=== PATIENT | male | born 1945 | race Caucasian/White ===

== ENCOUNTER 2018-08-10 18:31 | Emergency (ER) | payer BC, SELFPAY ==
[2018-08-10 18:34] VITALS: BP 137/79; PULSE 84; RESP 18; TEMP 36.7; O2SAT 93; BMI 27.9
--- NOTE | 2018-08-10 18:54 | DI.RAD.S_ITS ---
PROCEDURE: XR CHEST 1V INDICATIONS: short of breath chest pain TECHNIQUE: One view of the chest was acquired. COMPARISON: [facility], , CHEST 1 VIEW, 04/28/2016, 21:14. FINDINGS: Surgical changes and devices: None. Lungs and pleura: Trace blunting of the left costophrenic angle. Minimal appearance of streaky retrocardiac opacity. Mediastinum: Mediastinal contours appear normal. Heart size is normal. Bones and chest wall: No suspicious bony lesions. Overlying soft tissues appear unremarkable. IMPRESSION: Trace left effusion with streaky retrocardiac opacity suggestive of airspace disease such as developing pneumonia. Dictated by: Carli Crooks M.D. on 08/10/2018 at 19:23 Approved by: Carli Crooks M.D. on 08/10/2018 at 19:23
[2018-08-10 19:00] VITALS: BP 130/70; PULSE 76; RESP 17; O2SAT 93
--- NOTE | 2018-08-10 19:01 | ED.CHESTPAIN ---
HPI - Chest Pain General Chief Complaint: Chest Pain Stated Complaint: WHEN TRYING TO TAKE BREATH PAIN IN CHEST Time Seen by Provider: 08/10/18 18:47 Source: patient Mode of arrival: ambulatory Limitations: no limitations History of Present Illness HPI narrative: Patient is a 72-year-old male who presents with left-sided chest pain. He says it hurts every time he breathes. He feels like he has to take a shallow breath. It is nonradiating been ongoing since yesterday. He has had a productive cough sometimes it is blood-streaked but mostly yellow. He has not had rigors chills or fever. He denies any heart palpitations dizziness or lightheadedness. he has not taken anything for pain. patient does fly to [place] once a week. he has been doing this for number of years no history of blood clots. MD complaint: chest pain Onset (ago): day(s) (2) Relieving factors: nothing Exacerbating factors: inspiration and movement Related Data Home Medications Medication Instructions Recorded Confirmed CETIRIZINE HCL (Zyrtec) 10 mg PO Q DAY #0 04/14/11 Glucosamine Sulfate (#GLUCOSAMINE) 500 mg PO Q DAY #0 04/14/11 MULTIVITAMIN (#MULTIPLE VITAMINS) 1 cap PO Q DAY #0 04/14/11 tamsulosin [Flomax] 0.4 mg PO QDAY #0 10/16/17 Previous Rx's Medication Instructions Recorded amoxicillin-pot clavulanate 875 mg PO BID #20 tab 10/29/16 [Augmentin] levofloxacin [Levaquin] 750 mg PO DAILY #4 tab 08/10/18 Allergies Allergy/AdvReac Type Severity Reaction Status Date / Time Sulfa (Sulfonamide Allergy Severe airway Verified 08/10/18 18:33 Antibiotics) swelling [SULFA (SULFONAMIDE ANTIBIOTICS)] Review of Systems Review of Systems All systems reviewed & are unremarkable except as noted in HPI and below Constitutional Denies chills, Reports fatigue ( More tired over the last couple days), Denies fever(s), Denies lethargy and Denies weakness Eyes Denies change in vision, Denies eye discharge, Denies irritation and Denies loss of vision Cardiovascular Reports as per HPI Respiratory Reports as per HPI and Reports hemoptysis ( blood streaked sputum miniscule amounts) Gastrointestinal Gastrointestinal: Denies abdominal pain, Denies change in bowel habits, Denies diarrhea, Denies nausea and Denies vomiting Musculoskeletal Denies back pain, Denies muscle weakness, Denies numbness and Denies tingling Integumentary/Breasts Denies pruritus, Denies erythema, Denies rash and Denies wounds Neurologic Denies loss of vision, Denies numbness, Denies tingling and Denies weakness Endocrine Reports fatigue ( More tired over the last couple days) PFSH Medical History Healthy adult male (Acute) Social History Smoking Status: Never smoker Comment: PCP: [facility] Initial Vital Signs Initial Vital Signs: Vital Signs Temperature 98.0 F 08/10/18 18:34 Pulse Rate 84 08/10/18 18:34 Respiratory Rate 18 08/10/18 18:34 Blood Pressure 137/79 08/10/18 18:34 Pulse Oximetry 93 08/10/18 18:34 GENERAL: [Well-appearing, well-nourished] and in [no acute] distress. HEENT: Head atraumatic,EOMI, pupils reactive, face symmetric, no JVD neck is supple CARDIOVASCULAR: Regular rate and rhythm without murmurs, rubs or gallops. pain left-sided chest between ribs 3 and 4 slightly reproducible with palpation RESPIRATORY: Breath sounds equal bilaterally, no wheezes rales or rhonchi. deep breathing reproduces pain ABDOMEN: Soft, nontender. Normoactive bowel sounds all 4 quadrants. No guarding or rebound. EXTREMITIES: Normal range of motion, no clubbing or edema. Neurovascularly intact NEUROLOGICAL: Alert and oriented x4.Normal gait and speech. Cranial nerves II through XII grossly intact. SKIN: Warm, dry, no laceration, no petechiae, no rashes or lesions. Scores qSOFA Altered Mental Status (GCS <15): No Respiratory rate greater than/equal to 22: Yes Systolic blood pressure less than or equal to 100: No qSOFA Total: 1 0-1 Not High Risk 1-3 High risk Course Orders Ordered: ED Orders 08/10/18 18:54 XR chest 1V Stat 08/10/18 19:08 B Type Natriuretic Peptide Stat Complete Blood Count AUTO DIFF Stat Comprehensive Metabolic Panel Stat D Dimer Stat Lipase Stat Troponin & CK Cardiac Panel Stat 08/10/18 19:38 CT angio chest PE protocol Stat Discontinued Medications Albuterol/Ipratropium (Duoneb) 3 ml INH NOW ONE Stop: 08/10/18 18:57 Last Admin: 08/10/18 19:27 Dose: 3 ml Ketorolac Tromethamine (Toradol) 30 mg IV NOW ONE Stop: 08/10/18 18:57 Last Admin: 08/10/18 19:34 Dose: 30 mg Levofloxacin (Levaquin) 750 mg PO NOW ONE Stop: 08/10/18 20:56 Last Admin: 08/10/18 21:17 Dose: 750 mg Vital Signs - 8 hr 08/10/18 18:34 08/10/18 19:00 08/10/18 19:28 Temperature 98.0 F Pulse Rate 84 76 78 Respiratory Rate 18 17 17 Blood Pressure 137/79 Blood Pressure [Right Arm] 130/70 Pulse Oximetry 93 93 97 08/10/18 20:24 08/10/18 21:00 Temperature Pulse Rate 84 76 Respiratory Rate 18 25 H Blood Pressure Blood Pressure [Right Arm] 127/69 129/72 Pulse Oximetry 95 94 MDM - Chest Pain Lab Data Attestation: I reviewed the patient's lab results. Result diagrams: 08/10/18 19:08 08/10/18 19:08 Lab Results 08/10/18 08/10/18 08/10/18 Range/Units 19:08 19:08 19:08 WBC 10.8 (4.5-11.0) X10^3/uL RBC 4.55 (4.5-5.9) X10^6/uL Hgb 14.0 (13.5-17.5) g/dL Hct 41.5 (41-53) % MCV 91.3 (80-100) fL MCH 30.8 (26-34) PG MCHC 33.7 (30-36) % RDW 13.8 (11.6-14.8) % Plt Count 255 (150-400) X10^3/uL Neut % (Auto) 75.8 H (50-75) % Lymph % (Auto) 11.1 L (25-40) % [place] % (Auto) 11.4 (3-14) % Eos % (Auto) 1.3 L (2-4) % Baso % (Auto) 0.4 (0-2) % Neut # (Auto) 8200 H (1566-0086) /uL D-Dimer 420 H (<230) ng/mL Sodium 143 (137-145) mmol/L Potassium 4.4 (3.4-5.1) mmol/L Chloride 103 (98-107) mmol/L Carbon Dioxide 29 (22-32) mmol/L BUN 15 (9-20) mg/dL Creatinine 0.80 (0.66-1.25) mg/dL Estimated GFR > 60.0 (>60) mL/min BUN/Creatinine Ratio 18.8 (6-22) Glucose 99 (80-110) mg/dL Calcium 8.9 (8.4-10.2) mg/dL Total Bilirubin 0.7 (0.2-1.3) mg/dL AST 67 H (17-59) IU/L ALT 99 H (21-72) IU/L Alkaline Phosphatase 144 H (38-126) U/L Total Creatine Kinase 68 (55-170) U/L CK-MB (CK-2) TNP CK-MB (CK-2) Rel Index TNP Troponin I < 0.012 (0.01-0.034) ng/mL B-Natriuretic Peptide < 100.0 (<100) Total Protein 6.7 (6.3-8.2) g/dL Albumin 4.0 (3.5-5.0) g/dL Globulin 2.7 (1.7-4.1) g/dL Albumin/Globulin Ratio 1.5 (1.0-2.8) Lipase 37 (23-300) U/L Imaging Data Chest x-ray: Radiologist's impression: PROCEDURE: XR CHEST 1V INDICATIONS: short of breath chest pain TECHNIQUE: One view of the chest was acquired. COMPARISON: [facility], , CHEST 1 VIEW, 04/28/2016, 21:14. FINDINGS: Surgical changes and devices: None. Lungs and pleura: Trace blunting of the left costophrenic angle. Minimal appearance of streaky retrocardiac opacity. Mediastinum: Mediastinal contours appear normal. Heart size is normal. Bones and chest wall: No suspicious bony lesions. Overlying soft tissues appear unremarkable. IMPRESSION: Trace left effusion with streaky retrocardiac opacity suggestive of airspace disease such as developing pneumonia. Dictated by: Carli Crooks M.D. on 08/10/2018 at 19:23 CT PE:: Radiologist's impression: PROCEDURE: CT ANGIO CHEST PE PROTOCOL INDICATIONS: + d dimer chest pain TECHNIQUE: After the administration of intravenous contrast, 2 mm thick sections acquired from the pulmonary apices to the posterior costophrenic angles. 3-dimensional maximum intensity projection (MIP) coronal and sagittal reformats were then acquired through the thorax. For radiation dose reduction, the following was used: automated exposure control, adjustment of mA and/or kV according to patient size. COMPARISON: [facility], CR, XR CHEST 1V, 08/10/2018, 19:13. FINDINGS: Image quality: Excellent. Pulmonary arteries: Pulmonary arteries are normal in size, and demonstrate no intraluminal filling defects to suggest central pulmonary embolism. Lungs and pleura: Mild left pleural effusion with superimposed dependent changes. There is questionable appearance of minimal pleural enhancement surrounding the fluid. Mediastinum: Heart size is normal, with minimal pericardial effusion. No mediastinal or hilar adenopathy. Thoracic aorta is normal in caliber and enhancement. Esophagus is normal in caliber, without hiatal hernia. Bones and chest wall: No suspicious bony lesions. Ribs and thoracic spine appear intact throughout. Thyroid gland is unremarkable. No axillary or supraclavicular adenopathy. Abdomen: Visualized upper abdominal solid organs appear normal in the early arterial phase of enhancement. IMPRESSION: 1. No pulmonary embolism. 2. Mild left pleural effusion with superimposed dependent changes. Questionable appearance of area of pleural enhancement. Recommend correlation with patient's symptoms and laboratory values as developing empyema cannot be definitively excluded. Recommend short interval imaging followup to document improvement and resolution after appropriate therapy. Dictated by: Carli Crooks M.D. on 08/10/2018 at 20:36 ECG Data Attestation: I personally reviewed and interpreted this ECG as follows: Prior ECG tracings: available for review Interpretation: Sinus rhythm rate 80 NH interval 160 Q-waves noted in lead [address] T changes no T-wave inversions similar to previous EKG MDM Narrative Medical decision making narrative: The patient does not appear septic or toxic. He is afebrile. X-ray does show pneumonia, which can cause pain. He also has a productive cough and is overall weak and tired. His D-dimer is mildly elevated with his history of frequent flying will rule out PE with CT CT confirms pneumonia negative for pulmonary embolism. Will start patient on Levaquin. at this time patient is mentating appropriately he does not seem sick. His chest pain remains, medication did not help. I discussed all findings with the patient And his , Education has been performed regarding treatment plan, diagnosis, warning signs and symptoms and all concerns have been addressed. Verbally agree with and understood all of the above. Discharge Plan Departure Patient Disposition: Home Clinical Impression: Pneumonia Discharge Date/Time: 08/10/18 21:25 Interventions: ED Discharge Assessment Last Done: 08/10/18 21:18 Instructions: DI for Pneumonia -- Adult Activity Restrictions/Additional Instructions: *You have been diagnosed with pneumonia *What to do: CT blood work and x-ray are reassuring but you do have pneumonia. *Continue to take medications as directed Levaquin 1 tablet once a day for total of 5 days *Follow up with your primary care provider in 2-3 days *Return to ER if you should have Increasing chest pain, shortness of breath, difficulty breathing any new, worsening or concerning symptoms Prescriptions: New levofloxacin [Levaquin] 750 mg tablet 750 mg PO DAILY Qty: 4 RF: 0 No Action CETIRIZINE HCL (Zyrtec) 10 mg PO Q DAY Qty: 0 RF: 0 MULTIVITAMIN (#MULTIPLE VITAMINS) 1 cap PO Q DAY Qty: 0 RF: 0 Glucosamine Sulfate (#GLUCOSAMINE) 500 mg PO Q DAY Qty: 0 RF: 0 amoxicillin-pot clavulanate [Augmentin] 875 MG/125 MG tablet 875 mg PO BID Qty: 20 RF: 0 tamsulosin [Flomax] 0.4 MG capsule,extended release 24hr 0.4 mg PO QDAY Qty: 0 RF: 0
--- NOTE | 2018-08-10 19:13 | PC.NURSE ---
Attempts x2 for IV starts. Would not thread.
[2018-08-10 19:22] LABS: Add Manual Diff / Slide Review NO; Basophils Percent Auto 0.4 % (0-2); Eosinophils Percent Auto 1.3 % (2-4); Hematocrit 41.5 % (41-53); Lymphocytes Percent Auto 11.1 % (25-40); Mean Corpuscular HGB Conc 33.7 % (30-36); Mean Corpuscular Hemoglobin 30.8 PG (26-34); Mean Corpuscular Volume 91.3 fL (80-100); Monocytes Percent Auto 11.4 % (3-14); Neutrophils Absolute Auto 8200 /uL (3000-5900); Neutrophils Percent Auto 75.8 % (50-75); Platelet Count 255 X10^3/uL (150-400); Red Blood Cell Count 4.55 X10^6/uL (4.5-5.9); Red Cell Distribution Width 13.8 % (11.6-14.8); White Blood Cell Count 10.8 X10^3/uL (4.5-11.0)
[2018-08-10] MEDS: ALBUTEROL/IPRATROPIUM 3 ML AMPUL INH (19:27)
[2018-08-10 19:28] VITALS: PULSE 78; RESP 17; O2SAT 97
[2018-08-10 19:29] LABS: Alanine Aminotransferase 99 IU/L (21-72); Albumin Globulin Ratio 1.5 (1.0-2.8); Alkaline Phosphatase 144 U/L (38-126); Aspartate Aminotransferase 67 IU/L (17-59); BUN Creatinine Ratio 18.8 (6-22); Bilirubin Total 0.7 mg/dL (0.2-1.3); Blood Urea Nitrogen 15 mg/dL (9-20); Calcium 8.9 mg/dL (8.4-10.2); Carbon Dioxide 29 mmol/L (22-32); Chloride 103 mmol/L (98-107); Creatine Kinase 68 U/L (55-170); Estimated Glomerular Filt Rate > 60.0 mL/min (>60); Globulin 2.7 g/dL (1.7-4.1); Glucose 99 mg/dL (80-110); HEMOLYSIS < 15 (0-50); Lipase 37 U/L (23-300); Potassium 4.4 mmol/L (3.4-5.1); Sodium 143 mmol/L (137-145); Total Protein 6.7 g/dL (6.3-8.2)
[2018-08-10 19:32] LABS: D Dimer 420 ng/mL (<230)
[2018-08-10] MEDS: KETOROLAC 60 MG/2 ML VIAL 30 MG IV (19:34)
--- NOTE | 2018-08-10 19:38 | DI.CT.S_ITS ---
PROCEDURE: CT ANGIO CHEST PE PROTOCOL INDICATIONS: + d dimer chest pain TECHNIQUE: After the administration of intravenous contrast, 2 mm thick sections acquired from the pulmonary apices to the posterior costophrenic angles. 3-dimensional maximum intensity projection (MIP) coronal and sagittal reformats were then acquired through the thorax. For radiation dose reduction, the following was used: automated exposure control, adjustment of mA and/or kV according to patient size. COMPARISON: [facility], CR, XR CHEST 1V, 08/10/2018, 19:13. FINDINGS: Image quality: Excellent. Pulmonary arteries: Pulmonary arteries are normal in size, and demonstrate no intraluminal filling defects to suggest central pulmonary embolism. Lungs and pleura: Mild left pleural effusion with superimposed dependent changes. There is questionable appearance of minimal pleural enhancement surrounding the fluid. Mediastinum: Heart size is normal, with minimal pericardial effusion. No mediastinal or hilar adenopathy. Thoracic aorta is normal in caliber and enhancement. Esophagus is normal in caliber, without hiatal hernia. Bones and chest wall: No suspicious bony lesions. Ribs and thoracic spine appear intact throughout. Thyroid gland is unremarkable. No axillary or supraclavicular adenopathy. Abdomen: Visualized upper abdominal solid organs appear normal in the early arterial phase of enhancement. IMPRESSION: 1. No pulmonary embolism. 2. Mild left pleural effusion with superimposed dependent changes. Questionable appearance of area of pleural enhancement. Recommend correlation with patient's symptoms and laboratory values as developing empyema cannot be definitively excluded. Recommend short interval imaging followup to document improvement and resolution after appropriate therapy. Dictated by: Carli Crooks M.D. on 08/10/2018 at 20:36 Approved by: Carli Crooks M.D. on 08/10/2018 at 20:40
[2018-08-10 19:41] LABS: B Type Natriuretic Peptide < 100.0 (<100)
[2018-08-10 19:42] LABS: Troponin I < 0.012 ng/mL (0.01-0.034)
[2018-08-10 20:24] VITALS: BP 127/69; PULSE 84; RESP 18; O2SAT 95
[2018-08-10 21:00] VITALS: BP 129/72; PULSE 76; RESP 25; O2SAT 94
[2018-08-10] MEDS: levoFLOXacin 250 MG TABLET 750 MG PO (21:17)
== END 2018-08-10 21:25 | disposition home or self-care (01) ==
PROVIDERS: Emergency Provider Emergency Medicine
DX: J18.9 Pneumonia, unspecified organism (principal); R07.89 Other chest pain
CPT/HCPCS: 36415; 36591; 71045; 71275; 80053; 82550; 83690; 83880; 84484; 85025; 85379; 93005; 94640; 96374; 99283; 99285; J1885; Q9967